=== PATIENT | female | born 2000 | race Caucasian/White ===

== ENCOUNTER 2018-09-28 09:13 | Day surgery (SDC) | payer MEDICAID ==
[~2018-09-28 09:13] MED LIST: PROPOFOL INJ 200 MG/20 ML VIAL IV ONE
[2018-09-28 10:20] VITALS: BP 90/56
--- NOTE | 2018-09-28 13:01 | Operative Report ---
Operative Report DATE OF SURGERY: 09/28/18 PREOPERATIVE DIAGNOSIS: Right lower quadrant pain rule out Crohn's disease POSTOPERATIVE DIAGNOSIS: Normal colonoscopy but mild terminal ileitis noted status post biopsy rule out Crohn's disease OPERATION: Colonoscopy with biopsy SURGEON: ADOLPH HARDING ANESTHESIA: LMAC TISSUE REMOVED OR ALTERED: As noted above. COMPLICATIONS: None. ESTIMATED BLOOD LOSS: None. INTRAOPERATIVE FINDINGS: As noted above. PROCEDURE: The risks, benefits and alternatives of the procedure including the risk of bleeding, perforation requiring surgery have been explained to the patient in detail and informed consent has been obtained. The patient is taken back to the endoscopy suite and placed in a left, lateral decubital position. Timeout was called. Propofol medication is administered. Rectal examination is done which did not reveal any masses, tears or fissures. An Olympus videoscope was introduced into the patient's rectum. The scope was then carefully advanced all the way to the cecum. The cecum was identified by the usual anatomical landmarks of the ileocecal valve as well as the appendiceal office. Photodocumentation is obtained. The scope was then sequentially pulled back via the rest segments of the colon including the ascending colon, hepatic flexure, transverse colon, splenic flexure, descending colon and finally into the rectosigmoid portions of the colon. Retroflexion maneuvers performed. Patient tolerated procedure well. No immediate postprocedure complications are noted. Patient is discharged in good condition. Discharge date 09/28/2018. Discharge diet: Regular. Discharge activity: Regular. 2 to 3-week follow-up to discuss findings. Patient is instructed to call the office or proceed to the emergency room should there be any further problems or questions. Renal pathology.
== END 2018-09-28 10:21 | disposition home or self-care (01) ==
LOC: END 09:13
PROVIDERS: ATTEND Internal Medicine Gastroenterology
DX: K52.9 Noninfective gastroenteritis and colitis, unspecified (principal); Z79.899 Other long term (current) drug therapy; J45.909 Unspecified asthma, uncomplicated
CPT/HCPCS: 88305 ×2; 00811; J2704; 45380; 811